=== PATIENT | male | born 1985 | race American Indian/Alaskan Native ===

== ENCOUNTER 2018-05-19 10:16 | Observation (INO) | payer MEDICARE ==
[2018-05-19] MEDS ORDERED: NACL 0.9% 1000 ML 1,000 ML IV ONE (10:32)
[2018-05-19 10:49] LABS: Basophils % (Auto) 0.3 % (0.0-1.8); Eosinophils # (Auto) 0.1 K/mm3 (0.0-0.4); Eosinophils % (Auto) 1.3 % (0.0-4.3); Hemoglobin 15.3 gm/dl (11.8-15.2); Lymphocytes # (Auto) 1.9 K/mm3 (1.2-5.4); Lymphocytes % (Auto) 18.1 % (13.4-35.0); Mean Corpuscular HGB Conc 33 % (32-34); Mean Corpuscular Hemoglobin 33 pg (28-32); Mean Corpuscular Volume 100 fl (84-94); Monocytes # (Auto) 1.1 K/mm3 (0.0-0.8); Monocytes % (Auto) 11.1 % (0.0-7.3); Platelet Count 248 K/mm3 (140-440); Red Blood Count 4.62 M/mm3 (3.65-5.03); Red Cell Distribution Width 14.3 % (13.2-15.2)
[2018-05-19 10:59] LABS: INR 0.99 (0.87-1.13)
[2018-05-19 11:06] LABS: Alanine Aminotransferase 13 units/L (7-56); Albumin 4.3 g/dL (3.9-5); BUN/Creatinine Ratio 9; Blood Urea Nitrogen 10 mg/dL (9-20); Hemolysis Index 3
[2018-05-19 11:24] LABS: Bilirubin,Urine NEG (Negative); Blood,Urine NEG (Negative); Color,Urine Amber (Yellow); Mucus,Urine 3+ /HPF
[2018-05-19 11:33] LABS: Amphetamine Screen,Urine PRESUMPTIVE NEGATIVE; Benzodiazepines Screen,Urine PRESUMPTIVE NEGATIVE; Cocaine Screen,Urine PRESUMPTIVE NEGATIVE; Methadone Screen,Urine PRESUMPTIVE NEGATIVE; Opiate Screen,Urine PRESUMPTIVE NEGATIVE
[2018-05-19] MEDS ORDERED: TYLENOL PO ONE (11:41)
[2018-05-19 11:44] LABS: Cannabinoid Screen,Urine PRESUMPTIVE POSITIVE
--- NOTE | 2018-05-19 13:12 | XRay Report ---
AP CHEST: HISTORY: Possible sepsis AP view of the chest demonstrates a normal mediastinal and cardiac contour with clear lungs and normal bony and soft tissue structures. IMPRESSION: Unremarkable AP chest.
--- NOTE | 2018-05-19 13:13 | Cat Scan Report ---
FINAL REPORT EXAM: CT HEAD/BRAIN WO CON HISTORY: headache/HIV pos TECHNIQUE: CT examination of the head without IV contrast PRIORS: None. FINDINGS: Slight mucosal thickening right maxillary sinus. Moderate mucosal thickening with nonspecific moderate fluid level left maxillary sinus. Slight left and moderate right sphenoid sinus mucosal thickening. Scattered slight mucosal thickening ethmoid sinuses. Clear frontal sinuses. Clear mastoid air cells and middle ear cavities. Bone windows demonstrate no acute fracture. The brain is without mass, mass effect, hemorrhage, or acute infarct. There is no extra-axial intracranial bleed, brain bleed, or midline shift. The ventricles and sulci are age-appropriate. IMPRESSION: No acute CVA, intracranial bleed, or brain mass Paranasal sinus disease. Fluid level in left maxillary sinus may reflect acute sinusitis
--- NOTE | 2018-05-19 13:23 | Emergency Department Report ---
ED General Adult HPI - General Chief complaint: Upper Respiratory Infection Stated complaint: BODY PAIN Time Seen by Provider: 05/19/18 10:31 Source: patient Mode of arrival: Ambulatory Limitations: No Limitations - History of Present Illness Initial comments: Since a 33-year-old HIV-positive man who states that he has moved to the area in February but not followed up at an infectious disease clinic. He states he has been "stretching out" his anti-retroviral pills but has not completely run out. He presents to the emergency department because he had a fever measured at home of 101.5 he states. He states that he has had diarrhea nausea and vomited once. He has had a nonproductive cough. States that he has had some postnasal drip. He states that he "has a headache every day" but it's been worse over the past few days. He describes his headache as frontal in nature. He does not have photophobia or neck stiffness. He arrived in the emergency department with a heart rate of 132 per his triage note. Therefore a code sepsis was called by the nursing staff. On my encounter. The patient's heart rate had improved. His temperature was 99.3 I believe measured orally. He did not look toxic. -: Gradual Location: head Radiation: non-radiation Severity scale (0 -10): 6 Quality: aching Consistency: intermittent Improves with: none Worsens with: none Associated Symptoms: denies other symptoms (except as above) - Related Data Home Medications Medication Instructions Recorded Confirmed Last Taken Dapsone 100 mg PO DAILY 05/19/18 05/19/18 Unknown Darunavir/Cobicistat [Prezcobix 1 each PO QDAY 05/19/18 05/19/18 Unknown 800 mg-150 mg Tablet] Emtricitabine/Tenofov Alafenam 1 each PO DAILY 05/19/18 05/19/18 Unknown [Descovy 200-25 mg Tablet] Previous Rx's Medication Instructions Recorded Last Taken Type levoFLOXacin [Levaquin] 750 mg PO QDAY #14 tablet 05/19/18 Unknown Rx Allergies Allergy/AdvReac Type Severity Reaction Status Date / Time No Known Allergies Allergy Verified 05/19/18 10:23 ED Review of Systems ROS: Stated complaint: BODY PAIN Other details as noted in HPI Constitutional: fever Eyes: denies: eye pain, eye discharge, vision change ENT: denies: ear pain, throat pain Respiratory: cough. denies: shortness of breath, wheezing Cardiovascular: denies: chest pain, palpitations Endocrine: no symptoms reported Gastrointestinal: nausea, vomiting, diarrhea. denies: abdominal pain Genitourinary: denies: urgency, dysuria Musculoskeletal: denies: back pain, joint swelling, arthralgia Skin: denies: rash, lesions Neurological: headache. denies: weakness, paresthesias Psychiatric: denies: anxiety, depression Hematological/Lymphatic: denies: easy bleeding, easy bruising ED Past Medical Hx - Past Medical History Previous Medical History?: Yes Hx HIV: Yes - Surgical History Past Surgical History?: No - Social History Smoking Status: Current Every Day Smoker Substance Use Type: Alcohol, Marijuana - Medications Home Medications: Home Medications Medication Instructions Recorded Confirmed Last Taken Type Dapsone 100 mg PO DAILY 05/19/18 05/19/18 Unknown History Darunavir/Cobicistat [Prezcobix 1 each PO QDAY 05/19/18 05/19/18 Unknown History 800 mg-150 mg Tablet] Emtricitabine/Tenofov Alafenam 1 each PO DAILY 05/19/18 05/19/18 Unknown History [Descovy 200-25 mg Tablet] levoFLOXacin [Levaquin] 750 mg PO QDAY #14 tablet 05/19/18 Unknown Rx ED Physical Exam - General Limitations: No Limitations General appearance: alert, in no apparent distress - Head Head exam: Present: atraumatic, normocephalic - Eye Eye exam: Present: normal appearance, PERRL, EOMI - ENT ENT exam: Present: mucous membranes moist - Neck Neck exam: Present: normal inspection. Absent: tenderness, meningismus - Respiratory Respiratory exam: Present: normal lung sounds bilaterally. Absent: respiratory distress - Cardiovascular Cardiovascular Exam: Present: regular rate, normal rhythm. Absent: systolic murmur, diastolic murmur, rubs, gallop - GI/Abdominal GI/Abdominal exam: Present: soft, normal bowel sounds. Absent: distended, tenderness, guarding, rebound, rigid - Rectal Rectal exam: Present: deferred - Extremities Exam Extremities exam: Present: normal inspection - Back Exam Back exam: Present: normal inspection - Neurological Exam Neurological exam: Present: alert, oriented X3, CN II-XII intact. Absent: motor sensory deficit - Psychiatric Psychiatric exam: Present: normal affect, normal mood - Skin Skin exam: Present: warm, dry, intact, normal color. Absent: rash ED Course Vital Signs 05/19/18 05/19/18 05/19/18 10:19 11:00 11:06 Temperature 99.3 F Pulse Rate 132 H 96 H Respiratory 18 18 16 Rate Blood Pressure 131/93 121/83 O2 Sat by Pulse 98 98 100 Oximetry 05/19/18 05/19/18 05/19/18 11:22 11:30 12:00 Temperature 98.5 F Pulse Rate 92 H 73 Respiratory 26 H 21 Rate Blood Pressure 116/80 116/76 O2 Sat by Pulse 93 Oximetry 05/19/18 05/19/18 05/19/18 12:30 13:00 13:30 Temperature Pulse Rate 72 68 77 Respiratory 23 24 15 Rate Blood Pressure 110/70 112/68 122/73 O2 Sat by Pulse 97 94 96 Oximetry 05/19/18 14:00 Temperature Pulse Rate 78 Respiratory 15 Rate Blood Pressure 115/67 O2 Sat by Pulse Oximetry - Reevaluation(s) Reevaluation #1: I have spoke to Dr. Walker concerning this patient. CSF tests are pending. The patient was given ceftriaxone for sinusitis. The disposition will be per the hospitalist. I did call the lab. The CSF WBC was 0, RBC was 1. Crypto antigen is yet pending. Dr. Walker has told me that he would like to follow this patient in his office. That would be his prerogative. 05/19/18 15:38 ED Medical Decision Making - Lab Data Result diagrams: 05/19/18 10:32 05/19/18 10:32 Laboratory Results - last 24 hr 05/19/18 05/19/18 05/19/18 10:32 10:32 10:32 WBC 10.4 RBC 4.62 Hgb 15.3 H Hct 46.0 H MCV 100 H MCH 33 H MCHC 33 RDW 14.3 Plt Count 248 Lymph % (Auto) 18.1 [place] % (Auto) 11.1 H Eos % (Auto) 1.3 Baso % (Auto) 0.3 Lymph # 1.9 Frontier # 1.1 H Eos # 0.1 Baso # 0.0 Seg Neutrophils % 69.2 Seg Neutrophils # 7.2 PT 13.6 INR 0.99 VBG pH Sodium 138 Potassium 3.8 Chloride 101.7 Carbon Dioxide 23 Anion Gap 17 BUN 10 Creatinine 1.1 Estimated GFR > 60 BUN/Creatinine Ratio 9 Glucose 103 H Lactic Acid Calcium 9.0 Magnesium Total Bilirubin 0.50 AST 21 ALT 13 Alkaline Phosphatase 78 Total Protein 8.0 Albumin 4.3 Albumin/Globulin Ratio 1.2 Urine Color Urine Turbidity Urine pH Ur Specific [place] Urine Protein Urine Glucose (UA) Urine Ketones Urine Blood Urine Nitrite Urine Bilirubin Urine Urobilinogen Ur Leukocyte Esterase Urine WBC (Auto) Urine RBC (Auto) Urine Mucus CSF Appearance CSF Color CSF WBC CSF RBC CSF Glucose CSF Total Protein Urine Opiates Screen Urine Methadone Screen Ur Barbiturates Screen Ur Phencyclidine Scrn Ur Amphetamines Screen U Benzodiazepines Scrn Urine Cocaine Screen U Marijuana (THC) Screen Drugs of Abuse Note 05/19/18 05/19/18 05/19/18 10:32 10:32 10:32 WBC RBC Hgb Hct MCV MCH MCHC RDW Plt Count Lymph % (Auto) [place] % (Auto) Eos % (Auto) Baso % (Auto) Lymph # [place] # Eos # Baso # Seg Neutrophils % Seg Neutrophils # PT INR VBG pH 7.332 Sodium Potassium Chloride Carbon Dioxide Anion Gap BUN Creatinine Estimated GFR BUN/Creatinine Ratio Glucose Lactic Acid 1.80 Calcium Magnesium 1.90 Total Bilirubin AST ALT Alkaline Phosphatase Total Protein Albumin Albumin/Globulin Ratio Urine Color Urine Turbidity Urine pH Ur Specific [place] Urine Protein Urine Glucose (UA) Urine Ketones Urine Blood Urine Nitrite Urine Bilirubin Urine Urobilinogen Ur Leukocyte Esterase Urine WBC (Auto) Urine RBC (Auto) Urine Mucus CSF Appearance CSF Color CSF WBC CSF RBC CSF Glucose CSF Total Protein Urine Opiates Screen Urine Methadone Screen Ur Barbiturates Screen Ur Phencyclidine Scrn Ur Amphetamines Screen U Benzodiazepines Scrn Urine Cocaine Screen U Marijuana (THC) Screen Drugs of Abuse Note 05/19/18 05/19/18 05/19/18 11:06 11:06 13:07 WBC RBC Hgb Hct MCV MCH MCHC RDW Plt Count Lymph % (Auto) [place] % (Auto) Eos % (Auto) Baso % (Auto) Lymph # [place] # Eos # Baso # Seg Neutrophils % Seg Neutrophils # PT INR VBG pH Sodium Potassium Chloride Carbon Dioxide Anion Gap BUN Creatinine Estimated GFR BUN/Creatinine Ratio Glucose Lactic Acid 1.30 Calcium Magnesium Total Bilirubin AST ALT Alkaline Phosphatase Total Protein Albumin Albumin/Globulin Ratio Urine Color Unique Urine Turbidity Clear Urine pH 5.0 Ur Specific [place] 1.026 Urine Protein 30 mg/dl Urine Glucose (UA) Neg Urine Ketones Neg Urine Blood Neg Urine Nitrite Neg Urine Bilirubin Neg Urine Urobilinogen 4.0 Ur Leukocyte Esterase Neg Urine WBC (Auto) 1.0 Urine RBC (Auto) 1.0 Urine Mucus 3+ CSF Appearance CSF Color CSF WBC CSF RBC CSF Glucose CSF Total Protein Urine Opiates Screen Presumptive negative Urine Methadone Screen Presumptive negative Ur Barbiturates Screen Presumptive negative Ur Phencyclidine Scrn Presumptive negative Ur Amphetamines Screen Presumptive negative U Benzodiazepines Scrn Presumptive negative Urine Cocaine Screen Presumptive negative U Marijuana (THC) Screen Presumptive positive Drugs of Abuse Note Disclamer 05/19/18 Unknown WBC RBC Hgb Hct MCV MCH MCHC RDW Plt Count Lymph % (Auto) [place] % (Auto) Eos % (Auto) Baso % (Auto) Lymph # [place] # Eos # Baso # Seg Neutrophils % Seg Neutrophils # PT INR VBG pH Sodium Potassium Chloride Carbon Dioxide Anion Gap BUN Creatinine Estimated GFR BUN/Creatinine Ratio Glucose Lactic Acid Calcium Magnesium Total Bilirubin AST ALT Alkaline Phosphatase Total Protein Albumin Albumin/Globulin Ratio Urine Color Urine Turbidity Urine pH Ur Specific [place] Urine Protein Urine Glucose (UA) Urine Ketones Urine Blood Urine Nitrite Urine Bilirubin Urine Urobilinogen Ur Leukocyte Esterase Urine WBC (Auto) Urine RBC (Auto) Urine Mucus CSF Appearance Clear CSF Color Colorless CSF WBC 0 CSF RBC 1 CSF Glucose 57 CSF Total Protein 26 Urine Opiates Screen Urine Methadone Screen Ur Barbiturates Screen Ur Phencyclidine Scrn Ur Amphetamines Screen U Benzodiazepines Scrn Urine Cocaine Screen U Marijuana (THC) Screen Drugs of Abuse Note Critical care attestation.: If time is entered above; I have spent that time in minutes in the direct care of this critically ill patient, excluding procedure time. ED Disposition Clinical Impression: Febrile illness, acute, HIV positive Sinusitis Qualifiers: Sinusitis location: maxillary Chronicity: acute Recurrence: non-recurrent Qualified Code(s): J01.00 - Acute maxillary sinusitis, unspecified Disposition: TO HOME OR SELFCARE Is pt being admited?: No Does the pt Need Aspirin: No Prescriptions: levoFLOXacin [Levaquin] 750 mg PO QDAY #14 tablet Time of Disposition: 15:40
[2018-05-19 14:13] VITALS: BP 115/67
[2018-05-19] MEDS ORDERED: ZOFRAN IV ONE ×2 (14:20)
[2018-05-19] MEDS ORDERED: MORPHINE IV ONE ×2 (14:20)
[2018-05-19 15:00] LABS: Glucose,CSF 57 mg/dL
[2018-05-19] MEDS ORDERED: ROCEPHIN/NS 1 GM/50 ML 1 GM/50 ML BAG IV ONE (15:00)
--- NOTE | 2018-05-19 15:13 | Event Note ---
Date: 05/19/18 C/o L side Headache Since last night and Fever last night O/E Patient sitting in bed comfortably No neck stiffness Exam otherwise normal labs reviewed CT Head Sinusitis --maxillary sinusitis Diagnosis Acute Sinusitis levaquin 750 mg po qd x14 days F/u with ID in one week
[2018-05-19 15:35] LABS: Appearance,CSF Clear; Red Blood Cell,CSF 1 /mm3 (0-0); White Blood Cell,CSF 0 /mm3 (1-10)
[2018-05-19 16:05] LABS: Basophils CSF 0 %
== END 2018-05-19 16:39 | disposition home or self-care (01) ==
LOC: ED 10:16 → INTOOBSV 14:30 → 3A 14:30
PROVIDERS: ADMIT Internal Medicine; ATTEND Internal Medicine
DX: J01.00 Acute maxillary sinusitis, unspecified (principal); R50.9 Fever, unspecified; R51 Headache; F17.200 Nicotine dependence, unspecified, uncomplicated; F12.10 Cannabis abuse, uncomplicated; F10.10 Alcohol abuse, uncomplicated; Z79.899 Other long term (current) drug therapy
CPT/HCPCS: 36415; 70450; 71045; 80053; 80307; 81001; 82140; 82805; 82947; 83735; 84160; 85025; 85610; 86403; 86592; 87040; 87086; 87116; 89051; 93005; 93010; 96361; 96365; 96375; 99285; G0378; J0696; J2270; J2405; J7030